=== PATIENT | male | born 2000 | race Caucasian/White ===

== ENCOUNTER 2019-05-01 09:35 | Emergency (ER) | payer OTHER ==
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
[2019-05-01] MEDS ORDERED: Ketorolac Tromethamine 30 MG/ML VIAL ONE (12:19)
== END 2019-05-01 12:43 | disposition home or self-care (01) ==
LOC: ERS 09:35
DX: S39.012A Strain of muscle, fascia and tendon of lower back, initial encounter (principal); V43.52XA Car driver injured in collision with other type car in traffic accident, initial encounter
CPT/HCPCS: 72100; 96372; J1885